=== PATIENT | male | born 2000 | race Caucasian/White ===

== ENCOUNTER 2020-03-14 11:15 | Emergency (ER) | payer BC ==
[~2020-03-14] VITALS: Ht 185.4 cm; Wt 95.3 kg
[2020-03-14 11:15] VITALS: BP_SYST 187
--- NOTE | 2020-03-14 11:15 | NUR ---
BROUGHT BACK TO BED #4 AND TRIAGED. REPORT GIVEN TO KIERAN Addendum: 03/14/20 at 1135 by ALEXANDER REPORT TO AARON
--- NOTE | 2020-03-14 11:53 | NUR ---
Patient arrived in the ED c/o hemorrhoids for the last 2 days. Denied any chest pain or shortness of breath. Denied any fevers, chills, nausea or vomiting. Patient is alert and oriented x4, respirations even and unlabored, speaking in full sentences, and ambulating with a steady gait. VSS, pain level 10/10. Informed of the approximate wait time. Instructed to notify ED staff for any changes in condition or worsening of symptoms. Patient verbalized understanding.
--- NOTE | 2020-03-14 11:55 | NUR ---
ER Dr. Betancur at bedside examining patient.
--- NOTE | 2020-03-14 12:08 | NUR ---
ER Dr. Betancur at bedside doing an I&D for perianal abscess. Patient tolerated the procedure well.
[2020-03-14] MEDS ORDERED: LIDOCAINE 1% 10 MG/ML, 20 ML MDV INJ ONE (12:15)
[2020-03-14 12:21] VITALS: BP_SYST 187
--- NOTE | 2020-03-14 12:21 | NUR ---
Patient given written and verbal discharge instructions and verbalizes understanding. ER MD discussed with patient the results and treatment provided. Patient in stable condition. ID arm band removed. Rx of Tramadol and Flagyl given. Patient educated on pain management and to follow up with PMD. Pain Scale 0/10. Opportunity for questions provided and answered. Medication side effect fact sheet provided.
== END 2020-03-14 12:21 | disposition home or self-care (01) ==
LOC: SED 11:15
DX: K61.0 Anal abscess (principal)
CPT/HCPCS: 99284

== ENCOUNTER 2020-03-21 11:11 | Emergency (ER) | payer BC ==
[~2020-03-21] VITALS: Ht 185.4 cm; Wt 95.3 kg
[2020-03-21 11:30] VITALS: BP_SYST 154
--- NOTE | 2020-03-21 11:30 | NUR ---
Patient to ER bed 4 to gown for evaluation. Side rails up.
--- NOTE | 2020-03-21 11:32 | NUR ---
pt arrives for a would check on the right glute. Reports no other problems at the moment
--- NOTE | 2020-03-21 11:40 | NUR ---
ER at bedside examining patient.
--- NOTE | 2020-03-21 11:55 | NUR ---
Patient given written and verbal discharge instructions and verbalizes understanding. ER MD discussed with patient the results and treatment provided. Patient in stable condition. ID arm band removed. Patient educated on pain management and to follow up with PMD. Pain Scale 0/10. Opportunity for questions provided and answered. Medication side effect fact sheet provided.
[2020-03-21 11:58] VITALS: BP_SYST 154
== END 2020-03-21 11:55 | disposition home or self-care (01) ==
LOC: SED 11:11
DX: Z48.00 Encounter for change or removal of nonsurgical wound dressing (principal)
CPT/HCPCS: 99281